=== PATIENT | male | born 1985 | race Caucasian/White ===

== ENCOUNTER 2017-04-03 10:02 | Emergency (ER) | payer SELFPAY ==
[~2017-04-03] VITALS: Ht 175.3 cm; Wt 100.0 kg
[2017-04-03 10:05] VITALS: BP 132/77; PULSE 80; RESP 14; TEMP 98.2; O2SAT 97
--- NOTE | 2017-04-03 10:39 | PD ---
HPI Chief Complaint: Wound/Suture/Staple Re-Check Time Seen by Provider: 10:18 Travel History International Travel<30 days: No Contact w/Intl Traveler<30days: No Traveled to known affect area: No History of Present Illness HPI 31-year-old male presents to the emergency department for suture removal from his right volar hand. Patient states that he was seen 10 days ago at [facility]. He states that he slipped and fell and cut his hand on an oyster bed. He was seen at [facility], x-ray was completed. He was sutured in prescribed doxycycline. He states he was instructed to follow-up with a hand surgeon, Dr. Mejía. He states he did this and was to have surgery on a partially torn tendon. However, he has not followed back up with the hand surgeon. Patient denies any fevers or chills. He reports localized pain. He is currently still taking the doxycycline. He states that he is here for suture removal. [facility] Social History Alcohol Use: No Tobacco Use: No Substance Use: No Allergies-Medications (Allergen,Severity, Reaction): Coded Allergies: No Known Allergies (Verified Allergy, Mild, 04/03/17) Reported Meds & Prescriptions Reported Meds & Active Scripts Active Review of Systems Except as stated in HPI: all other systems reviewed are Neg Physical Exam Narrative GENERAL: Well-nourished, well-developed male patient, ambulatory and in no acute distress. SKIN: Focused skin assessment warm/dry. Patient has healing laceration to the right volar hand at the base of the right 3rd, 4th, and 5th fingers. No surrounding erythema or discharge. HEAD: Normocephalic. EYES: No scleral icterus. No injection or drainage. NECK: Supple, trachea midline. No JVD or lymphadenopathy. CARDIOVASCULAR: Regular rate and rhythm without murmurs, gallops, or rubs. RESPIRATORY: Breath sounds equal bilaterally. No accessory muscle use. Lung sounds are clear to auscultation. GASTROINTESTINAL: Abdomen soft, non-tender, nondistended. MUSCULOSKELETAL: No cyanosis, or edema. Patient has slightly limited flexion of the right 3rd, 4th, and 5th fingers. BACK: Nontender without obvious deformity. No CVA tenderness. Data Data Last Documented VS Vital Signs Date Time Temp Pulse Resp B/P (MAP) Pulse Ox O2 Delivery O2 Flow Rate FiO2 04/03/17 10:54 04/03/17 10:05 98.2 80 14 97 Orders Orders Ed Discharge Order (04/03/17 10:39) MDM Medical Decision Making Medical Screen Exam Complete: Yes Emergency Medical Condition: Yes Medical Record Reviewed: Yes Differential Diagnosis suture removal vs. cellulitis vs. dehiscence Narrative Course 31 year old male presents to the emergency department for suture removal to a laceration to the right volar hand that occurred 10 days ago. Sutures were placed at [facility]. Sutures are removed without difficulty. No evidence of cellulitis or dehiscence. I encouraged patient to follow back up with hand surgeon and he agrees to do so. Diagnosis Primary Impression: Visit for suture removal Referrals: Hand Surgeon 2 days Patient Instructions: General Instructions, Stitches Removal (ED) Additional Instructions: Clean twice daily with soap and water. Keep area clean and dry. Follow back up with hand surgeon. Return to the emergency department for any acute worsening of symptoms or any evidence of infection. Med/Other Pt SpecificInfo: No Change to Meds Disposition: 01 DISCHARGE HOME Condition: Stable Evon Xiong Apr 03, 2017 10:39
== END 2017-04-03 11:02 | disposition home or self-care (01) ==
LOC: NEPK 10:02
DX: S61.411D Laceration without foreign body of right hand, subsequent encounter (principal); W01.0XXD Fall on same level from slipping, tripping and stumbling without subsequent striking against object, subsequent encounter; Z48.02 Encounter for removal of sutures
CPT/HCPCS: 99281